=== PATIENT | female | born 1980 | race Caucasian/White ===

== ENCOUNTER → 2019-11-13 14:46 | Outpatient (BNVA) | payer MEDICAID, SELFPAY | PROVIDERS: Family Provider Family Medicine; Visit Provider Emergency Medicine | DX: M25.572 Pain in left ankle and joints of left foot (principal) | CPT/HCPCS: 73610 ==

== ENCOUNTER 2019-11-21 10:29 | Outpatient (CLI) | payer MEDICAID, SELFPAY ==
--- NOTE | 2019-11-21 10:40 | MR_ITS ---
WS: [id number] MRI LEFT ANKLE without CONTRAST. COMPARISON: LEFT ankle radiographs 11/13/2019 Multiplanar, multisequence imaging is performed without contrast. Significant abnormal findings in the medial subtalar joint. There is marrow edema in the inferior med ial talus and additional marrow edema in the medial calcaneus. There is marked narrowing and irregula rity along the subtalar joint. Osteochondral defects are noted along inferior talus. These osteochond ral lesions measure 4.6 and 4.9 mm. The intraosseous ligament is not identified as an intact structur e. Cervical ligament is probably intact. There is increased signal in the subtalar region. No edi architect ior subluxation of the talus. There is spurring and hypertrophic bone formation involving the far med ial talocalcaneal articulation with adjacent soft tissue thickening. There is mild thickening of the flexor digitorum longus tendon but it does appear to be intact as a cross is adjacent to the sustenta culum shaila. There is a small lobulated cystic mass measuring 10 mm just lateral to the flexor digitor um longus tendon along the anterior calcaneus. There is a small amount of fluid in the peroneal tendon sheath Achilles tendon is normal. MR/MR ankle LT wo con* [id number] IMPRESSION: 1. Findings suggest abnormal impingement involving the medial talocalcaneal ar ticulation and the subtalar joint. Marrow edema on both sides of the joint with osteochondral lesions along the inferior surface of the talus. 2. Intraosseous ligament is not identified as a discrete structure and could b e torn. 3. Mild thickening of the flexor digitorum longus tendon as it passes by the s ustentaculum shaila. No tear. 4. Mild peroneal tenosynovitis. 5. Possible ganglion associated with the flexor digitorum longus tendon along the anterior calcaneus.
== END 2019-11-21 10:30 | disposition home or self-care (01) ==
LOC: RADWPI 10:36
PROVIDERS: Visit Provider Emergency Medicine
DX: M25.572 Pain in left ankle and joints of left foot (principal); G89.29 Other chronic pain; M65.872 Other synovitis and tenosynovitis, left ankle and foot
CPT/HCPCS: 73721

== ENCOUNTER → 2020-01-19 16:00 | Outpatient (BNVA) | payer MEDICAID, SELFPAY | PROVIDERS: Visit Provider Nurse Practitioner Family | DX: Z11.59 Encounter for screening for other viral diseases (principal) | CPT/HCPCS: 87635 ==

== ENCOUNTER 2020-01-24 08:19 | Inpatient (IN) | payer MEDICAID, SELFPAY ==
[2020-01-24] VITALS (8 sets, daily range): BP systolic 126–143; BP diastolic 78–88; PULSE 63–95; RESP 18–28; TEMP 36.9–37.6; O2SAT 88–95; BMI 51.7
--- NOTE | 2020-01-24 08:42 | XRR_ITS ---
PROCEDURE INFORMATION: Exam: XR Chest, 1 View Exam date and time: 01/24/2020 8:59 AM Age: 39 years old Clinical indication: Shortness of breath; Additional info: Covid TECHNIQUE: Imaging protocol: XR of the chest Views: 1 view. COMPARISON: No relevant prior studies available. FINDINGS: Lungs: Interstitial and asymmetric airspace disease, in the setting of reported COVID pneumonitis. Pleural space: No significant pleural effusion. Heart/Mediastinum: No cardiomegaly. Bones/joints: Unremarkable. XR/XR chest 1V portable [id number] IMPRESSION: Interstitial and asymmetric airspace disease, in the setting of reported COVID pneumonitis.
--- NOTE | 2020-01-24 08:45 | ECG_ITS ---
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
--- NOTE | 2020-01-24 08:55 | W.ED.COVID ---
HPI - COVID General: Chief Complaint: Shortness of Breath/Dyspnea Stated Complaint: covid +. SOB Time Seen by Provider: 01/24/20 08:29 Triage information: Has fever, cough or shortness of breath. Exposure to COVID + person last 14 days History of Present Illness: HPI Narrative: This patient is a 39-year-old female who presents today with Covid symptoms and shortness of breath. She is on day 8 of symptoms. She had a positive Covid test done on Sunday and also at the same time had a negative flu test. She has been having fever, cough, shortness of breath, loose stools, poor appetite, body aches. Her temperatures been up to 102. She does not know when or how she was exposed. She does not have a history of diabetes, hypertension, asthma. She is morbidly obese with a BMI of 51. She came in today because last night she really fell like she could not get a good breath. Her room air sat during our conversation ranged between 89 and 92%. MD complaint: known COVID positive Prior covid testing: yes, results known Prior testing date: 01/19/20 COVID 19 common symptoms: positive fever(s), chills, cough, non-productive cough, dyspnea, fatigue, body aches, headache(s), loss of sense of smell and/or taste, nasal congestion, nausea and diarrhea COVID 19 other sytmptoms: negative chest pain Onset (ago): day(s) (8) Severity: moderate Pertinent comorbid conditions: obesity (BMI 51) COVID Results: SARS-CoV-2 RNA (RT-PCR) Detected (NOT DETECTED) A 01/19/20 16:00 01/19/20 Review of Systems General: Reports: 10 or more systems reviewed and unremarkable except in HPI and below Const: Reports: fever(s), chills, body aches and fatigue Eyes: Denies: change in vision ENMT: Reports: nasal congestion Card: Denies: chest pain or swelling of feet/ankles Resp: Reports: dyspnea and non-productive cough GI: Reports: nausea and diarrhea : Denies: flank pain or difficulty voiding Musc: Denies: neck pain or back pain Skin/Breast: Denies: rash Neuro: Reports: headache(s) Nitish/Lymph: Denies: easy bruising or easy bleeding PFSH ED PFSH: Medical History No pertinent past medical history Surgical History No pertinent past surgical history Social History Smoking and tobacco status: never smoked Alcohol intake: never Current occupational status: employed Current occupation: [employer] Physical Exam Const: COMMON NORMALS: no acute distress, patient oriented x3, no limitations and alert GENERAL APPEARANCE: cooperative NUTRITIONAL APPEARANCE: obese morbidly obese HENMT: HEAD & SCALP: normal to inspection FACE & SINUS: normal facial exam Eye: GENERAL EYE: appearance normal, both eyes and all related structures Neck/C-Spine: COMMON NORMALS: supple, no meningeal signs and no JVD Chest: COMMONS NORMALS: normal inspection of the chest Resp: EFFORT & INSPECTION: Yes tachypneic AUSCULTATION: diminished lung sounds Cardio: COMMON NORMALS: no JVD, regular rate, regular rhythm and No murmurs present (Cardio) RATE: regular rate RHYTHM: regular rhythm GI: COMMON NORMALS: Normal to inspection, nondistended, normoactive bowel sounds present, Soft to palpation and non-tender INSPECTION: Yes normal to inspection AUSCULTATION: Yes normoactive bowel sounds PALPATION: Yes Soft to palpation Back/Pelvis: COMMON NORMALS: thoracic and lumbar spine normal to inspection Extremity: COMMON NORMALS: normal to inspection Neuro: COMMON NORMALS: patient oriented x3, moves all extremities, no focal motor deficits and no sensory deficits noted SENSORIUM/ORIENTATION: Yes alert MENINGEAL SIGNS: Yes no meningeal signs Psych: COMMON NORMALS: mental status grossly normal, cooperative and normal affect Skin: COMMON NORMALS: no rashes or lesions noted and turgor normal GENERAL SKIN EXAM: no rashes or lesions noted and turgor normal Course ED course: This patient remained fairly stable while in the department. Her room air sats continued to be only in the high 80s. When she came back from CT she was not put back on her oxygen and her sats consistently stayed low. I put her back on oxygen she is now 93 or 94% on 2 L. Her chest x-ray shows some significant infiltrates as does the CT. There is no PE noted. Her labs were pretty good with only slight elevation in her inflammatory markers. Her D-dimer was quite elevated at 1.15. She will be admitted to the floor for oxygen, observation, treatment. Her obesity is her main risk factor and is a significant 1. Vital Signs: Vital signs: Vital Signs Temperature 98.9 F 01/24/20 08:32 Pulse Rate 95 01/24/20 08:32 Blood Pressure 138/88 01/24/20 08:32 Pulse Oximetry 91 01/24/20 08:32 MDM - COVID Lab Data Result diagrams: 01/24/20 08:55 01/24/20 08:55 Labs: Lab Results 01/24/20 01/24/20 01/24/20 Range/Units 08:55 08:55 08:55 WBC 4.2 (4.0-10.0) 10^3/uL RBC 4.65 (4.1-5.3) 10^6/uL Hgb 13.1 (11.5-15.3) g/dL Hct 41.3 (37.0-47.0) % MCV 88.8 (81-99) fL MCH 28.2 (28.0-34.0) pg MCHC 31.7 (30.0-36.0) g/dL RDW 13.9 (12.1-15.1) % Plt Count 185 (130-400) 10^3/cmm MPV 9.8 (7.4-10.4) fL Neut % (Auto) 75.2 % Lymph % (Auto) 18.7 % [place] % (Auto) 5.2 % Eos % (Auto) 0.2 % Baso % (Auto) 0.2 % Neut # (Auto) 3.17 (1.8-7.7) 10^3/uL Lymph # (Auto) 0.8 (0.8-4.8) 10^3/uL [place] # (Auto) 0.2 (0.2-0.9) 10^3/uL Eos # (Auto) 0.0 (0.0-0.8) 10^3/uL Baso # (Auto) 0.0 (0.0-0.1) 10^3/uL Nucleated RBC % (auto) 0 % Nucleated RBCs # 0.0 /100WBC PT 13.10 (12.1-14.9) SECONDS INR 0.97 (0.8-1.2) Fibrinogen 555 H (174-498) mg/dL D-Dimer 1.15 H (0-0.59) ug/mIFEU Sodium 135 L (136-145) mmol/L Potassium 4.0 (3.5-5.1) mmol/L Chloride 98 (98-107) mmol/L Carbon Dioxide 24 (22-29) mmol/L Anion Gap 17.0 (5-19) BUN 4 L (6-20) mg/dL Creatinine 0.7 (0.5-0.9) mg/dL GFR Calculation 92.7 (90-130) mL/min Glucose 119 H (65-115) mg/dL Calculated Osmolality 278 L (285-295) mOsm/kg Lactic Acid (0.5-2.2) mmol/L Calcium 8.3 L (8.5-10.5) mg/dL Ferritin 325 H (15-150) ng/mL Total Bilirubin 0.4 (0.15-1.2) mg/dL AST 29 (0-32) U/L ALT 25 (0-33) U/L Alkaline Phosphatase 102 (35-105) IU/L Troponin T Baseline (0-10) ng/L C-Reactive Protein 28.3 H (0.0-4.9) mg/L NT-Pro-B Natriuret Pep 68 (0-125) pg/mL Total Protein 6.8 (6.6-8.7) g/dL Albumin 4.3 (3.5-5.2) g/dL Globulin 2.5 (1.3-4.6) g/dL Procalcitonin 0.08 (0-0.5) ng/mL 01/24/20 01/24/20 Range/Units 08:55 08:55 WBC (4.0-10.0) 10^3/uL RBC (4.1-5.3) 10^6/uL Hgb (11.5-15.3) g/dL Hct (37.0-47.0) % MCV (81-99) fL MCH (28.0-34.0) pg MCHC (30.0-36.0) g/dL RDW (12.1-15.1) % Plt Count (130-400) 10^3/cmm MPV (7.4-10.4) fL Neut % (Auto) % Lymph % (Auto) % [place] % (Auto) % Eos % (Auto) % Baso % (Auto) % Neut # (Auto) (1.8-7.7) 10^3/uL Lymph # (Auto) (0.8-4.8) 10^3/uL [place] # (Auto) (0.2-0.9) 10^3/uL Eos # (Auto) (0.0-0.8) 10^3/uL Baso # (Auto) (0.0-0.1) 10^3/uL Nucleated RBC % (auto) % Nucleated RBCs # /100WBC PT (12.1-14.9) SECONDS INR (0.8-1.2) Fibrinogen (174-498) mg/dL D-Dimer (0-0.59) ug/mIFEU Sodium (136-145) mmol/L Potassium (3.5-5.1) mmol/L Chloride (98-107) mmol/L Carbon Dioxide (22-29) mmol/L Anion Gap (5-19) BUN (6-20) mg/dL Creatinine (0.5-0.9) mg/dL GFR Calculation (90-130) mL/min Glucose (65-115) mg/dL Calculated Osmolality (285-295) mOsm/kg Lactic Acid 1.1 (0.5-2.2) mmol/L Calcium (8.5-10.5) mg/dL Ferritin (15-150) ng/mL Total Bilirubin (0.15-1.2) mg/dL AST (0-32) U/L ALT (0-33) U/L Alkaline Phosphatase (35-105) IU/L Troponin T Baseline 6 (0-10) ng/L C-Reactive Protein (0.0-4.9) mg/L NT-Pro-B Natriuret Pep (0-125) pg/mL Total Protein (6.6-8.7) g/dL Albumin (3.5-5.2) g/dL Globulin (1.3-4.6) g/dL Procalcitonin (0-0.5) ng/mL COVID Results: SARS-CoV-2 RNA (RT-PCR) Detected (NOT DETECTED) A 01/19/20 16:00 01/19/20 Discharge Plan Discharge Patient Disposition: Admitted As Inpatient Clinical Impression: COVID-19, Hypoxia Condition: Stable Coding Level of Care Code ED Trimmer Meat for Johng Fwd Exam Comprehensive
[2020-01-24 09:10] LABS: Basophils % 0.2 %; Eosinophils % 0.2 %; Hematocrit 41.3 % (37.0-47.0); Hemoglobin 13.1 g/dL (11.5-15.3); Lymphocytes # 0.8 10^3/uL (0.8-4.8); Lymphocytes % 18.7 %; Mean Corpuscular HGB Conc 31.7 g/dL (30.0-36.0); Mean Corpuscular Hemoglobin 28.2 pg (28.0-34.0); Mean Corpuscular Volume 88.8 fL (81-99); Mean Platelet Volume 9.8 fL (7.4-10.4); Monocytes # 0.2 10^3/uL (0.2-0.9); Monocytes % 5.2 %; Neutrophils # 3.17 10^3/uL (1.8-7.7); Neutrophils % 75.2 %; Nucleated Red Blood Cells % 0 %; Platelet Count 185 10^3/cmm (130-400); Red Blood Count 4.65 10^6/uL (4.1-5.3); Red Cell Distribution Width 13.9 % (12.1-15.1); White Blood Count 4.2 10^3/uL (4.0-10.0)
[2020-01-24] MEDS: dexamethasone 4 mg/mL INJ 6 MG IVP ×2 (09:24→13:09)
[2020-01-24 09:25] LABS: INR 0.97 (0.8-1.2)
[2020-01-24 09:28] LABS: D Dimer 1.15 ug/mIFEU (0-0.59)
[2020-01-24 09:36] LABS: Lactic Sepsis W/Reflex 1.1 mmol/L (0.5-2.2)
[2020-01-24 09:38] LABS: Troponin(5th) Baseline 6 ng/L (0-10)
[2020-01-24 09:43] LABS: NT Pro B Type Natriuretic Pept 68 pg/mL (0-125); Procalcitonin 0.08 ng/mL (0-0.5)
[2020-01-24 09:54] LABS: Alanine Aminotransferase 25 U/L (0-33); Albumin Level 4.3 g/dL (3.5-5.2); Alkaline Phosphatase 102 IU/L (35-105); Aspartate Amino Transferase 29 U/L (0-32); Blood Urea Nitrogen 4 mg/dL (6-20); C Reactive Protein 28.3 mg/L (0.0-4.9); Calcium 8.3 mg/dL (8.5-10.5); Carbon Dioxide 24 mmol/L (22-29); Chloride 98 mmol/L (98-107); Ferritin 325 ng/mL (15-150); Globulin 2.5 g/dL (1.3-4.6); Glomerular Filtration Rate 92.7 mL/min (90-130); Glucose 119 mg/dL (65-115); Osmolality Calculated 278 mOsm/kg (285-295); Sodium 135 mmol/L (136-145); Total Bilirubin 0.4 mg/dL (0.15-1.2); Total Protein 6.8 g/dL (6.6-8.7)
[2020-01-24 09:56] LABS: Fibrinogen 555 mg/dL (174-498)
[2020-01-24] MEDS: sodium chloride 0.9% 1,000 ML 999 ML IV (10:10)
--- NOTE | 2020-01-24 10:49 | CTR_ITS ---
PROCEDURE INFORMATION: Exam: CT Angiography Chest With Contrast Exam date and time: 01/24/2020 10:49 AM Age: 39 years old Clinical indication: Dyspnea; Additional info: Covid, high d-dimer, hypoxia TECHNIQUE: Imaging protocol: Computed tomographic angiography of the chest with intravenous contrast. 3D rendering (Not supervised by radiologist): MIP and/or 3D reconstructed images were created by the technologist. Radiation optimization: All CT scans at this facility use at least one of these dose optimization techniques: automated exposure control; mA and/or kV adjustment per patient size (includes targeted exams where dose is matched to clinical indication); or iterative reconstruction. Contrast material: OMNIPAQUE 350; Contrast volume: 95 ml; Contrast route: INTRAVENOUS (IV); COMPARISON: CR (CHEST, ) 01/24/2020 8:56 AM RADIATION DOSE METRICS: Total DLP (mGy-cm): 546.64 FINDINGS: Pulmonary arteries: No pulmonary embolus in the central pulmonary arteries. Evaluation of the peripheral pulmonary arteries is somewhat limited by motion artifact. Aorta: Normal caliber of the thoracic aorta. Lungs: Multifocal bilateral airspace disease, in the setting of reported COVID-19 pneumonitis. Pleural space: No pleural effusion. Heart: No cardiomegaly. Lymph nodes: Calcified and noncalcified lymph nodes, including a 2.3 by 2.4 by 2.2 cm noncalcified right paratracheal lymph node. Upper abdomen: Fatty infiltration of the liver. Enlarged spleen measuring 16.2 cm in length. Colonic diverticula. Bones/joints: Marginal osteophytes . CT/CT angio chest PE protcl [id number] IMPRESSION: 1. No pulmonary embolus in the central pulmonary arteries. Evaluation of the peripheral pulmonary arteries is somewhat limited by motion artifact. 2. Multifocal bilateral airspace disease, in the setting of reported COVID-19 pneumonitis. 3. Additional findings as described above. Radiation Dose CTDIVOL = (mGy): DLP = 546.64 (mGy-cm)
[2020-01-24] MEDS: iohexol 350 mg/mL 100 mL Btl IV (11:20)
[2020-01-24] MEDS: enoxaparin 80 mg/0.8 mL Syringe 70 MG SUBCUT (12:27)
--- NOTE | 2020-01-24 13:42 | PM.HP ---
Providers/Chief Complaint Admitting Physician: Sarwat Branch MD Chief Complaint: covid +. SOB History of Present Illness Shoshana Pan is a 39 year old female with no significant past medical history who was tested positive for Covid around 8 days ago. She states for last 3 to 4 days she has been spiking fevers along with cough and difficulty in breathing which mostly started last night which made her to come to the ER today. She is complaining of mild headache, symptoms of sinus congestion, dry cough with occasional headaches and change of sense of smell for last couple of days. She states she is not really sure from there she contracted the infection and nobody else at home has any similar complaints. Her blood work in the ER showed a white count of 4.2, hemoglobin 13.1, platelet count of 185, INR of 0.9, fibrinogen of 555, D-dimer of 1.15, sodium 135, creatinine of 0.7, AST/ALT of 29/25, CRP of 28 CTA chest negative for pulmonary embolism. Review of Systems General: Reports: 10 or more systems reviewed and unremarkable except in HPI and below Const: Denies: fever(s), chills, body aches, change in appetite, change in weight, malaise, night sweats, diaphoresis, change in sleep pattern, daytime sleepiness or snoring Eyes: Denies: change in vision, blurry vision, photophobia, eye discomfort or eye discharge ENMT: Denies: throat pain, enlarged tonsils, hoarseness, mouth pain, oral sores, dry mouth, tinnitus, nasal congestion or post nasal drip Card: Denies: chest pain, palpitations, irregular heart rhythm, edema, swelling of feet/ankles, lightheadedness, syncope, pre-syncope, dyspnea on exertion, orthopnea, leg pain with exertion or acrocyanosis Resp: Denies: dyspnea, productive cough, non-productive cough, wheezing, stridor, pain on inspiration, change in phlegm color, hemoptysis or chest congestion GI: Denies: abdominal pain, nausea, vomiting, hematemesis, coffee ground emesis, dysphagia, heartburn, diarrhea, constipation, bloating, GI cramping, change in bowel habits, pain on defecation, hematochezia or melena : Denies: flank pain, dysuria, urinary frequency, urinary urgency, urinary hesitancy, nocturia or hematuria Musc: Denies: neck pain, back pain, extremity pain, joint pain, joint swelling, joint redness, joint stiffness or limited range of motion Neuro: Denies: headache(s), numbness in extremities, weakness in extremities, sensory changes, lack of coordination, difficulty walking, frequent falls, dizziness, vertigo, confusion, Slurred speech present, difficulty communicating thoughts or seizure-like activity Psych: Denies: anxiety, depression, mood swings, panic attacks, hopelessness or irritability Endo: Denies: polyuria, polydipsia, tired all the time, cold intolerance, excessive sweating, flushing or heat intolerance Nitish/Lymph: Denies: easy bruising or easy bleeding All/Imm: Denies: tongue swelling, facial swelling or acute wheezing Medications/Allergies Home Medications Medication Instructions Recorded Confirmed Last Taken Type [place] AFO #1 ea 12/12/19 01/24/20 Unknown Rx wuffqespaggbcrw-xqqelnsidvhyzni-WJ 7.5 ml PO Q6H PRN #160 ml 01/22/20 01/24/20 01/24/20 03:00 Rx 2 mg-30 mg-10 mg/5 mL oral syrup 7.5ml guaifenesin 600 mg tablet, 600 mg PO Q12H #20 tab 01/22/20 01/24/20 01/24/20 Rx extended release 12 hr ondansetron 4 mg disintegrating 4 mg PO Q6H PRN #12 tab 01/22/20 01/24/20 01/22/20 Rx tablet azithromycin 250 mg tablet See Rx Instructions PO .COMPLEX #6 01/23/20 01/24/20 01/23/20 Rx tab 2 tabs ibuprofen [Advil] 200 - 400 mg PO PRN 01/24/20 01/24/20 01/23/20 History tyigchka-hdb-gek C-herb no.124 See Rx Instructions .ROUTE .COMPLEX 01/24/20 01/24/20 01/23/20 History [Airborne Gummy] Allergies Allergy/AdvReac Type Severity Reaction Status Date / Time No Known Allergies Allergy Verified 01/24/20 09:51 PFSH Acute PFSH: Medical History No pertinent past medical history Surgical History No pertinent past surgical history Family History (Updated 01/24/20 @ 16:46 by Sarwat Branch MD) Denies family history of Clotting disorder Chronic kidney disease (CKD) Social History Smoking and tobacco status: never smoked Alcohol intake: never Current occupational status: employed Current occupation: [employer] Vitals/I&O/Wt Last Vital Signs Temp 98.9 F 01/24/20 08:32 Pulse 95 01/24/20 08:32 BP 138/88 01/24/20 08:32 Pulse Ox 91 01/24/20 08:32 Weight last 48 hrs Weight 149.685 kg Physical Exam Narrative: EXAM NARRATIVE: General: No acute distress, AO x3, morbidly obese HEENT: PERRLA, pupils bilaterally equal and reactive Chest: Normal vesicular breath sounds, occasional bilateral rhonchi, equal good air entry bilaterally CVS: S1-S2 regular, no murmurs, no tachycardia, no gallops, no rubs Abdomen: Soft, nontender, no organomegaly, bowel sounds present Neuro: No focal deficits, no facial deformity, AO x3, power 5/5 in all limbs Data : 01/24/20 08:55 01/24/20 08:55 A&P Assessment and plan (1) COVID-19: Status: Acute (2) Hypoxia: Status: Acute Additional A&P Information Hypoxia due to COVID-19: At least moderate COVID-19 as patient is requiring 2 to 3 L oxygen supplementation keeping saturation over 92%. Antiviral medication including Remedesevir to finish a 5-day course. Start patient on dexamethasone 6 mg IV daily. Start patient on vitamin C, zinc. Start patient on Advair, Spiriva. Tessalon Perles every 8 hour. Continue to monitor inflammatory markers including proBNP, LDH, fibrinogen, ferritin, CRP, CPK daily. D-dimer elevated. CTA negative for PE. Start patient on Eliquis 5 mg twice daily. Patient will most likely require it for 14 days post discharge to prevent from thromboembolism. Check proBNP, blood culture, urine culture, urine analysis urine Legionella, bacterial antigen, procalcitonin, flu swab, MRSA swab, sputum culture. Start patient on levofloxacin 500 mg every other day as per the renal functions. We will continue the treatment for at least 5 days. Chances of super added bacterial infection low. Will check sputum culture as well. Hypertension: Goal blood pressure less than 140/90 mmHg. Patient does not have any history of hypertension in the past. We will continue to monitor. Check TSH, iron panel, A1c, lipid panel. Full code. Famotidine for PUD prophylaxis Isaac will also help with DVT prophylaxis. Attestations Medical Necessity Statement*: Patient needs hospitalization for management of hypoxia due to COVID-19 pneumonia. Admission for most likely more than 2 midnights. 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
[2020-01-24] MEDS: zinc gluconate 50 mg Tablet PO (17:07)
[2020-01-24] MEDS: ascorbic acid 500 mg Tablet PO (17:07)
[2020-01-24] MEDS: famotidine 20 mg/2 mL INJ IVP (17:08)
[2020-01-24] MEDS: apixaban 5 mg Tablet PO (17:08)
[2020-01-24] MEDS: benzonatate 100 mg Capsule PO ×2 (17:08→21:23)
[2020-01-24 18:01] LABS: Add Urine Culture? No; Bacteria Urine TRACE /hpf; Bilirubin Urine Neg (Negative); Blood Urine 2+ (Negative); Glucose Urine UA Norm (Normal); Ketones Urine Negative (Negative); Leukocyte Esterase Urine Negative (Negative); Nitrate Urine Negative (Negative); Protein Urine Neg (Negative); RBC Urine 0-4 /hpf (0-2); Squamous Epithelial Cell Urine 0-4 /hpf (0-5); Urine Appearance Clear (CLEAR); Urine Color Yellow (Yellow); Urobilinogen Urine Norm (Negative); WBC Urine RARE /hpf (0-5); pH Urine 6.5 (5-7)
[2020-01-24 18:10] LABS: Influenza A by IFA Negative (Negative); Influenza B by IFA Negative (Negative)
[2020-01-24 18:20] LABS: Thyroid Stimulating Hormone 0.62 uIU/mL (0.27-4.20)
[2020-01-24 18:21] LABS: Iron 32 ug/dL (37-145); NT Pro B Type Natriuretic Pept 95 pg/mL (0-125); Percent Saturation 12.5 % (20-50); Total Iron Binding Capacity 255 mcg/dl; Unsaturated Iron Binding 223 ug/dL (112-347)
[2020-01-25] VITALS (8 sets, daily range): BP systolic 107–137; BP diastolic 69–77; PULSE 61–82; RESP 18–24; TEMP 36.6–37; O2SAT 93–97
[2020-01-25] MEDS: famotidine 20 mg/2 mL INJ IVP ×2 (04:03→15:26)
--- NOTE | 2020-01-25 06:00 | XRR_ITS ---
PROCEDURE INFORMATION: Exam: XR Chest, 1 View Exam date and time: 01/25/2020 5:20 AM Age: 39 years old Clinical indication: Shortness of breath; Additional info: Covid TECHNIQUE: Imaging protocol: XR of the chest Views: 1 view. COMPARISON: CR (CHEST, ) 01/24/2020 8:56 AM FINDINGS: Lungs: Diminutive lung volumes. Interstitial crowding with diminishing interstitial opacities at the lower lungs. Pleural space: No pleural effusion. Heart/Mediastinum: Heart size is similar. Bones/joints: Unremarkable. XR/XR chest 1V portable [id number] IMPRESSION: Mildly diminished interstitial opacities lower lungs with a rather diffuse suggestion of interstitial thickening or interstitial crowding remaining.
[2020-01-25] MEDS: levoFLOXacin 500 mg Tablet PO (06:06)
[2020-01-25 06:34] LABS: Hematocrit 37.7 % (37.0-47.0); Hemoglobin 11.9 g/dL (11.5-15.3); Lymphocytes # 0.7 10^3/uL (0.8-4.8); Lymphocytes % 22.3 %; Mean Corpuscular HGB Conc 31.6 g/dL (30.0-36.0); Mean Corpuscular Volume 88.7 fL (81-99); Mean Platelet Volume 10.9 fL (7.4-10.4); Monocytes # 0.2 10^3/uL (0.2-0.9); Monocytes % 6.3 %; Neutrophils # 2.35 10^3/uL (1.8-7.7); Neutrophils % 70.8 %; Nucleated Red Blood Cells % 0 %; Platelet Count 184 10^3/cmm (130-400); Red Blood Count 4.25 10^6/uL (4.1-5.3); Red Cell Distribution Width 13.7 % (12.1-15.1); White Blood Count 3.3 10^3/uL (4.0-10.0)
[2020-01-25 06:47] LABS: Fibrinogen 494 mg/dL (174-498)
[2020-01-25 06:56] LABS: Alanine Aminotransferase 22 U/L (0-33); Albumin Level 3.8 g/dL (3.5-5.2); Alkaline Phosphatase 87 IU/L (35-105); Chloride 103 mmol/L (98-107); Potassium 3.9 mmol/L (3.5-5.1); Sodium 140 mmol/L (136-145)
[2020-01-25 07:26] LABS: C Reactive Protein 20.5 mg/L (0.0-4.9); Chol HDL Ratio 3.11 mg/dL (0.0-4.40); Cholesterol 112 mg/dL (0-200); Creatine Phosphokinase 57 U/L (26-192); Ferritin 342 ng/mL (15-150); HDL Cholesterol 36 mg/dL (60-100); LDL Cholesterol Calculated 60 mg/dL (50-129); Lactate Dehydrogenase 477 U/L (135-214); Triglycerides 82 mg/dL (0-150); VLDL Cholestrol Calculation 16 mg/dL (0-30)
[2020-01-25 07:27] LABS: Anion Gap 17.9 (5-19); Aspartate Amino Transferase 22 U/L (0-32); Blood Urea Nitrogen 8 mg/dL (6-20); Calcium 8.1 mg/dL (8.5-10.5); Carbon Dioxide 23 mmol/L (22-29); Globulin 2.3 g/dL (1.3-4.6); Glomerular Filtration Rate 136.6 mL/min (90-130); Glucose 123 mg/dL (65-115); Osmolality Calculated 290 mOsm/kg (285-295); Total Bilirubin 0.3 mg/dL (0.15-1.2); Total Protein 6.1 g/dL (6.6-8.7)
[2020-01-25 07:38] LABS: D Dimer 0.72 ug/mIFEU (0-0.59)
[2020-01-25 07:58] LABS: INR 1.11 (0.8-1.2)
[2020-01-25 08:04] LABS: Estmated Average Glucose 120; Hemoglobin A1C 5.8 % (4.0-6.0)
[2020-01-25 08:13] LABS: Slide Review Slide Review Perform
[2020-01-25] MEDS: zinc gluconate 50 mg Tablet PO (08:48)
[2020-01-25] MEDS: ascorbic acid 500 mg Tablet PO (08:48)
[2020-01-25] MEDS: fluticasone nasal spray 16gm Btl 1 SPRAY NASAL (08:48)
[2020-01-25] MEDS: benzonatate 100 mg Capsule PO ×3 (08:48→21:05)
[2020-01-25] MEDS: dexamethasone 4 mg/mL INJ 6 MG IVP (08:48)
[2020-01-25] MEDS: apixaban 5 mg Tablet PO ×2 (08:48→17:16)
[2020-01-25] MEDS: guaiFENesin-dextromethorphan UDC 10 mL 5 ML PO (10:59)
--- NOTE | 2020-01-25 13:38 | P.PN_ITS ---
Subjective Subjective: Interval history: On examination patient lying in bed. Overnight patient required 4 L to maintain saturation 90%. She states she is feeling a little weak. Denies any nausea, vomiting, headache. Appetite is appropriate. Working well with incentive spirometry and flutter valve. Vitals/I&O/Wt Last Vital Signs Temp 98.4 F 01/25/20 12:00 Pulse 67 01/25/20 12:00 Resp 18 01/25/20 12:00 BP 107/69 01/25/20 12:00 Pulse Ox 93 01/25/20 12:00 01/24/20 01/25/20 01/25/20 23:59 06:59 14:59 Intake Total 900 / 900 Output Total Balance 900 / 900 Weight last 48 hrs Weight 143.879 kg Weight 149.685 kg Physical Exam Narrative: EXAM NARRATIVE: General: No acute distress, AO x3, morbidly obese HEENT: PERRLA, pupils bilaterally equal and reactive Chest: Normal vesicular breath sounds, occasional bilateral rhonchi, equal good air entry bilaterally CVS: S1-S2 regular, no murmurs, no tachycardia, no gallops, no rubs Abdomen: Soft, nontender, no organomegaly, bowel sounds present Neuro: No focal deficits, no facial deformity, AO x3, power 5/5 in all limbs Data : 01/25/20 04:50 01/25/20 04:50 Micro: Microbiology 01/24/20 17:38 Gram Stain - Final Sputum - Expectorated Sputum 01/24/20 17:38 Legionella Urinary Antigen - Final Urine,Voided Bacterial Antigens - Final 01/24/20 17:40 Blood Culture - Preliminary Blood SPECIMEN COLLECTED 01/24/20 08:55 Blood Culture - Preliminary Blood SPECIMEN COLLECTED A&P Assessment and plan (1) COVID-19: Status: Acute (2) Hypoxia: Status: Acute Additional A&P Information Hypoxia due to COVID-19: At least moderate COVID-19 as patient is requiring 2 to 3 L oxygen supplementation keeping saturation over 92%. Antiviral medication including Remedesevir to finish a 5-day course. Day 2/ today. Start patient on dexamethasone 6 mg IV daily. Start patient on vitamin C, zinc. Start patient on Advair, Spiriva. Tessalon Perles every 8 hour. Inflammatory markers mildly improved today with fibrinogen trending down, D- dimer trending down though ferritin mildly elevated. Continue to monitor inflammatory markers including proBNP, LDH, fibrinogen, ferritin, CRP, CPK daily. D-dimer elevated. CTA negative for PE. Start patient on Eliquis 5 mg twice daily. Patient will most likely require it for 14 days post discharge to prevent from thromboembolism. Start patient on levofloxacin 500 mg every other day as per the renal functions. We will continue the treatment for at least 5 days. Chances of super added bacterial infection low. Will check sputum culture as well. Hypertension: Goal blood pressure less than 140/90 mmHg. Patient does not have any history of hypertension in the past. We will continue to monitor. TSH, lipid panel within normal limits. Iron panel suggestive of iron deficiency anemia so will start on oral iron supplementation. Full code. Famotidine for PUD prophylaxis Eliquis will also help with DVT prophylaxis. Attestations Medical Necessity Statement*: Needs further hospitalization for management of hypoxia due to COVID-19 pneumonia. Time Spent in Patient Care: Greater than 35 minutes (>than 50% of time spent in counselling and/or direct pt care on unit) . 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
[2020-01-26] VITALS (9 sets, daily range): BP systolic 111–137; BP diastolic 63–82; PULSE 51–78; RESP 15–20; TEMP 36.4–37.3; O2SAT 93–96
[2020-01-26] MEDS: famotidine 20 mg/2 mL INJ IVP (03:49)
[2020-01-26 04:58] LABS: Basophils % 0.1 %; Hematocrit 37.1 % (37.0-47.0); Hemoglobin 11.7 g/dL (11.5-15.3); Lymphocytes # 0.9 10^3/uL (0.8-4.8); Lymphocytes % 13.6 %; Mean Corpuscular HGB Conc 31.5 g/dL (30.0-36.0); Mean Corpuscular Hemoglobin 28.1 pg (28.0-34.0); Mean Corpuscular Volume 89.2 fL (81-99); Mean Platelet Volume 10.6 fL (7.4-10.4); Monocytes # 0.4 10^3/uL (0.2-0.9); Monocytes % 6.1 %; Neutrophils # 5.31 10^3/uL (1.8-7.7); Neutrophils % 79.3 %; Nucleated Red Blood Cells % 0 %; Platelet Count 207 10^3/cmm (130-400); Red Blood Count 4.16 10^6/uL (4.1-5.3); Red Cell Distribution Width 13.9 % (12.1-15.1); White Blood Count 6.7 10^3/uL (4.0-10.0)
[2020-01-26] MEDS: levoFLOXacin 500 mg Tablet PO (05:11)
[2020-01-26 05:37] LABS: D Dimer 0.55 ug/mIFEU (0-0.59)
[2020-01-26 05:44] LABS: C Reactive Protein 8.2 mg/L (0.0-4.9); Creatine Phosphokinase 52 U/L (26-192); Ferritin 328 ng/mL (15-150); Lactate Dehydrogenase 359 U/L (135-214)
[2020-01-26 05:45] LABS: Alanine Aminotransferase 17 U/L (0-33); Albumin Level 3.7 g/dL (3.5-5.2); Alkaline Phosphatase 79 IU/L (35-105); Anion Gap 13.8 (5-19); Aspartate Amino Transferase 14 U/L (0-32); Blood Urea Nitrogen 13 mg/dL (6-20); Calcium 8.4 mg/dL (8.5-10.5); Carbon Dioxide 27 mmol/L (22-29); Chloride 101 mmol/L (98-107); Globulin 2.2 g/dL (1.3-4.6); Glomerular Filtration Rate 110.2 mL/min (90-130); Glucose 123 mg/dL (65-115); Osmolality Calculated 287 mOsm/kg (285-295); Potassium 3.8 mmol/L (3.5-5.1); Sodium 138 mmol/L (136-145); Total Bilirubin 0.2 mg/dL (0.15-1.2); Total Protein 5.9 g/dL (6.6-8.7)
[2020-01-26 07:56] LABS: Fibrinogen 405 mg/dL (174-498)
[2020-01-26] MEDS: ferrous gluconate 324 mg Tablet PO (08:54)
[2020-01-26] MEDS: ascorbic acid 500 mg Tablet PO (08:54)
[2020-01-26] MEDS: apixaban 5 mg Tablet PO ×2 (08:54→17:47)
[2020-01-26] MEDS: zinc gluconate 50 mg Tablet PO (08:54)
[2020-01-26] MEDS: benzonatate 100 mg Capsule PO ×3 (08:54→21:43)
[2020-01-26] MEDS: fluticasone nasal spray 16gm Btl 1 SPRAY NASAL (08:59)
[2020-01-26] MEDS: dexamethasone 4 mg/mL INJ 6 MG IVP (09:20)
--- NOTE | 2020-01-26 14:35 | P.PN_ITS ---
Subjective Subjective: Interval history: Decreasing oxygen requirement, down to 2 L nasal cannula, hemodynamically stable and afebrile. On day 3 of remdesivir. Noted down-trending inflammatory markers. Had 1100 mL urine output overnight. Overall feels better, has been able to ambulate to and from the bathroom on her own. Reports poor sleep partially due to frequency of nursing staff rounds and likely steroids as well. Has been able to be off oxygen for brief periods of time while at rest. Medications: Reviewed: Yes Medication Review Details: Active Medications Generic Name Dose Route Start Last Admin Trade Name Freq PRN Reason Stop Dose Admin Acetaminophen 650 mg 01/24/20 16:42 Tylenol PO Q6H PRN Mild/Mod Pain Or Temp >/= 101 Apixaban 5 mg 01/24/20 18:00 01/26/20 08:54 Eliquis PO 5 mg BID HILDA Administration Ascorbic Acid 500 mg 01/24/20 16:20 01/26/20 08:54 Vitamin C PO 500 mg DAILY HILDA Administration Benzonatate 100 mg 01/24/20 16:20 01/26/20 08:54 Tessalon Pearls PO 100 mg TID HILDA Administration Bisacodyl 10 mg 01/24/20 16:42 Dulcolax PO DAILY PRN CONSTIPATION Dexamethasone 6 mg 01/25/20 09:00 01/26/20 09:20 Decadron IVP 6 mg Q24H HILDA Administration Famotidine 20 mg 01/26/20 17:00 Pepcid Tab PO Q12H HILDA Ferrous Gluconate 324 mg 01/26/20 08:00 01/26/20 08:54 Ferrous Gluconat e PO 324 mg BREAKFAST HILDA Administration Fluticasone Propio sheng 1 spray 01/25/20 09:00 01/26/20 08:59 Flonase NASAL 1 spray DAILY HILDA Administration Guaifenesin/Dextro methorphan 5 ml 01/25/20 10:51 01/25/20 10:59 Robitussin Dm Or al Liq PO 5 ml Q4H PRN Administration COUGH remdesivir (EUA) 1 00 mg/ 100 mls @ 100 mls /hr 01/25/20 12:30 01/26/20 12:56 Sodium Chloride IV 01/28/20 13:29 100 mls/hr Q24H HILDA Administration Lactulose 10 gm 01/24/20 16:42 Constulose PO DAILY PRN CONSTIPA Levofloxacin 500 mg 01/25/20 06:00 01/26/20 05:11 Levaquin PO 500 mg DAILY@0600 HILDA Administration Protocol Ondansetron HCl 4 mg 01/24/20 16:42 Zofran IVP Q8H PRN vomiting, or N/V if npo Fluticasone/Salmet aimee 1 puff 01/24/20 20:00 01/26/20 08:45 Advair Diskus 25 0-50 INHALATION 1 puff BID.RESPIRATORY S CH Administration Tiotropium [place] 18 mcg 01/25/20 08:00 01/26/20 08:42 Spiriva INHALATION 1 puff DAILY.RESPIRATORY HILDA Administration Zinc Gluconate 50 mg 01/24/20 16:20 01/26/20 08:54 Zinc Gluconate PO 50 mg DAILY HILDA Administration No Known Allergies Allergy (Verified 01/24/20 09:51) Vitals/I&O/Wt Last Vital Signs Temp 97.8 F 01/26/20 12:00 Pulse 63 01/26/20 12:00 Resp 15 01/26/20 12:00 BP 134/80 01/26/20 12:00 Pulse Ox 95 01/26/20 12:00 01/25/20 01/26/20 01/26/20 22:59 06:59 14:59 Intake Total 1580 / 3060 480 / 3540 200 / 200 Output Total 1350 / 1950 500 / 2450 2150 / 2150 Balance 230 / 1110 -20 / 1090 -1950 / -1950 Weight last 48 hrs Weight 80.014 kg Weight 143.879 kg Physical Exam Const: COMMON NORMALS: no acute distress, patient oriented x3 and alert GENERAL APPEARANCE: cooperative and comfortable NUTRITIONAL APPEARANCE: obese morbidly obese ORIENTATION/CONSCIOUSNESS: Yes awake OTHER: -very pleasant HENMT: COMMON NORMALS: normocephalic, atraumatic, hearing grossly normal bilaterally and moist oral mucous membranes HEAD & SCALP: normocephalic and atraumatic Eye: COMMON NORMALS: Equal, round and reactive pupils present, EOMs intact bilaterally and conjunctivae normal CONJUNCTIVA: Yes conjunctivae normal PUPIL: Yes Equal, round and reactive pupils present Neck/C-Spine: COMMON NORMALS: full ROM GENERAL: Yes normal visual inspection and Yes trachea midline Resp: COMMON NORMALS: normal respiratory effort, No retractions and No use of accessory muscles EFFORT & INSPECTION: Yes able to speak in complete sentences, Yes symmetric chest movement and No tachypneic OTHER: -on 2 L NC -diminished though equal breath sounds bilaterally Cardio: COMMON NORMALS: regular rate, regular rhythm, S1 normal heart sound present, S2 normal heart sound present and No murmurs present (Cardio) RATE: regular rate and bradycardic (intermittent) RHYTHM: regular rhythm HEART SOUNDS: S1 normal heart sound present and S2 normal heart sound present GI: COMMON NORMALS: Normal to inspection, nondistended, normoactive bowel sounds present, Soft to palpation and non-tender INSPECTION: Yes central obesity PALPATION: Yes Soft to palpation Extremity: COMMON NORMALS: normal to inspection, full ROM and no clubbing, cyanosis or edema; negative for no pedal edema Neuro: COMMON NORMALS: patient oriented x3, moves all extremities, no focal motor deficits, no sensory deficits noted and gait normal SENSORIUM/ORIENTATI ON: Yes alert Psych: COMMON NORMALS: mental status grossly normal, Normal thought process present, cooperative, normal affect and speech normal SPEECH: Yes normal speech THOUGHT PROCESS: Normal thought process present Skin: COMMON NORMALS: no rashes or lesions noted, no jaundice, no petechiae and no mottling GENERAL SKIN EXAM: no rashes or lesions noted Data : 01/26/20 04:32 01/26/20 04:32 Micro: Microbiology 01/24/20 17:40 Blood Culture - Preliminary Blood NEGATIVE TO DATE 01/24/20 08:55 Blood Culture - Preliminary Blood NEGATIVE TO DATE 01/24/20 17:38 MRSA Culture - Final Nose A&P Assessment and plan (1) COVID-19: -Found to be COVID-19 positive, symptomatic, particularly with respect to respiratory symptoms -Decreasing oxygen requirement, wean as tolerated, not oxygen dependent at baseline, home oxygen evaluation prior to discharge if appropriate -Inflammatory markers are trending down, continue to monitor -Vital signs stable, continue to monitor -Continue to monitor respiratory status -Continue incentive spirometry, breathing treatments as needed, zinc, vitamin C, pulmonary toilet -Telemetry monitoring -Continue remdesivir (day 3), IV steroids, empiric antibiotics -Noted to have elevated D-dimer, CTA done which ruled out PE, on Eliquis -Influenza, bacterial antigens, Legionella, MRSA negative -blood cx: prelim negative -sputum cx pending; gram stain-GPC Status: Acute (2) Hypoxia: -secondary to COVID-19 infection as noted above Status: Acute Additional A&P Information -regular diet as tolerated -GI ppx with famotidine -DVT ppx not needed as on Eliquis -Dispo: home -Code status: FULL code Attestations Medical Necessity Statement*: Patient requires hospitalization for continued treatment of COVID-19 pneumonia, remains on antiviral and antibiotic therapy, continues to require supplemental oxygen and close monitoring of respiratory status. Time Spent in Patient Care: 16 - 35 minutes (>than 50% of time spent in counselling and/or direct pt care on unit) . 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
[2020-01-26] MEDS: famotidine 20 mg Tablet PO (17:47)
--- NOTE | 2020-01-26 19:00 | PC.NURSE ---
SHIFT SUMMARY PT DOWN TO 2 LNC AND UP AMBULATING WITHOUT DIFFICULTY. PT HAD NO COMPLAINTS OF DISCOMFORT OR PAIN AT THIS TIME.
[2020-01-27] VITALS (9 sets, daily range): BP systolic 109–132; BP diastolic 70–82; PULSE 48–66; RESP 18–20; TEMP 36.9–37.2; O2SAT 93–96
[2020-01-27] MEDS: levoFLOXacin 500 mg Tablet PO (05:01)
[2020-01-27] MEDS: famotidine 20 mg Tablet PO ×2 (05:01→17:00)
--- NOTE | 2020-01-27 05:25 | PC.NURSE ---
Patient stable, moved to room 257, no events overnight. Will continue to monitor.
[2020-01-27 08:16] LABS: C Reactive Protein 4.9 mg/L (0.0-4.9); Ferritin 287 ng/mL (15-150); Lactate Dehydrogenase 302 U/L (135-214)
[2020-01-27] MEDS: zinc gluconate 50 mg Tablet PO (08:30)
[2020-01-27] MEDS: ascorbic acid 500 mg Tablet PO (08:30)
[2020-01-27] MEDS: fluticasone nasal spray 16gm Btl 1 SPRAY NASAL (08:30)
[2020-01-27] MEDS: ferrous gluconate 324 mg Tablet PO (08:30)
[2020-01-27] MEDS: benzonatate 100 mg Capsule PO ×3 (08:30→23:04)
[2020-01-27] MEDS: apixaban 5 mg Tablet PO ×2 (08:30→17:01)
[2020-01-27] MEDS: dexamethasone 4 mg/mL INJ 6 MG IVP (09:14)
--- NOTE | 2020-01-27 11:23 | P.PN_ITS ---
Subjective Subjective: Interval history: On day 4 of remdesivir, weaned to room air at rest, hemodynamically stable though with some intermittent bradycardia, asymptomatic. Continued decrease in inflammatory markers though most have normalized. Is in good spirits, was able to sleep last night so feels more rested today. Has remained on RA at rest and has been ambulating in her room. Medications: Reviewed: Yes Medication Review Details: Active Medications Generic Name Dose Route Start Last Admin Trade Name Freq PRN Reason Stop Dose Admin Acetaminophen 650 mg 01/24/20 16:42 Tylenol PO Q6H PRN Mild/Mod Pain Or Temp >/= 101 Apixaban 5 mg 01/24/20 18:00 01/27/20 08:30 Eliquis PO 5 mg BID HILDA Administration Ascorbic Acid 500 mg 01/24/20 16:20 01/27/20 08:30 Vitamin C PO 500 mg DAILY HILDA Administration Benzonatate 100 mg 01/24/20 16:20 01/27/20 08:30 Tessalon Pearls PO 100 mg TID HILDA Administration Bisacodyl 10 mg 01/24/20 16:42 Dulcolax PO DAILY PRN CONSTIPATION Dexamethasone 6 mg 01/25/20 09:00 01/27/20 09:14 Decadron IVP 6 mg Q24H HILDA Administration Famotidine 20 mg 01/26/20 17:00 01/27/20 05:01 Pepcid Tab PO 20 mg Q12H HILDA Administration Ferrous Gluconate 324 mg 01/26/20 08:00 01/27/20 08:30 Ferrous Gluconat e PO 324 mg BREAKFAST HILDA Administration Fluticasone Propio sheng 1 spray 01/25/20 09:00 01/27/20 08:30 Flonase NASAL 1 spray DAILY HILDA Administration Guaifenesin/Dextro methorphan 5 ml 01/25/20 10:51 01/25/20 10:59 Robitussin Dm Or al Liq PO 5 ml Q4H PRN Administration COUGH remdesivir (EUA) 1 00 mg/ 100 mls @ 100 mls /hr 01/25/20 12:30 01/26/20 12:56 Sodium Chloride IV 01/28/20 13:29 100 mls/hr Q24H HILDA Administration Lactulose 10 gm 01/24/20 16:42 Constulose PO DAILY PRN CONSTIPA Levofloxacin 500 mg 01/25/20 06:00 01/27/20 05:01 Levaquin PO 500 mg DAILY@0600 HILDA Administration Protocol Ondansetron HCl 4 mg 01/24/20 16:42 Zofran IVP Q8H PRN vomiting, or N/V if npo Fluticasone/Salmet aimee 1 puff 01/24/20 20:00 01/27/20 09:04 Advair Diskus 25 0-50 INHALATION 1 puff BID.RESPIRATORY S CH Administration Tiotropium [place] 18 mcg 01/25/20 08:00 01/27/20 09:04 Spiriva INHALATION 1 puff DAILY.RESPIRATORY HILDA Administration Zinc Gluconate 50 mg 01/24/20 16:20 01/27/20 08:30 Zinc Gluconate PO 50 mg DAILY HILDA Administration No Known Allergies Allergy (Verified 01/24/20 09:51) Vitals/I&O/Wt Last Vital Signs Temp 98.7 F 01/27/20 08:00 Pulse 48 L 01/27/20 09:04 Resp 18 01/27/20 09:04 BP 130/79 01/27/20 08:00 Pulse Ox 94 01/27/20 09:04 01/26/20 01/27/20 01/27/20 22:59 06:59 14:59 Intake Total 600 / 800 Output Total 1750 / 3900 200 / 200 Balance -1150 / -3100 -200 / -200 Weight last 48 hrs Weight 145.694 kg Weight 80.014 kg Physical Exam Const: COMMON NORMALS: no acute distress, patient oriented x3 and alert GENERAL APPEARANCE: cooperative and comfortable NUTRITIONAL APPEARANCE: obese morbidly obese ORIENTATION/CONSCIOUSNESS: Yes awake OTHER: -very pleasant HENMT: COMMON NORMALS: normocephalic, atraumatic, hearing grossly normal bilaterally and moist oral mucous membranes HEAD & SCALP: normocephalic and atraumatic Eye: COMMON NORMALS: Equal, round and reactive pupils present, EOMs intact bilaterally and conjunctivae normal CONJUNCTIVA: Yes conjunctivae normal PUPIL: Yes Equal, round and reactive pupils present Neck/C-Spine: COMMON NORMALS: full ROM GENERAL: Yes normal visual inspection and Yes trachea midline Resp: COMMON NORMALS: normal respiratory effort, No retractions and No use of accessory muscles EFFORT & INSPECTION: Yes able to speak in complete sentences, Yes symmetric chest movement and No tachypneic OTHER: -on RA while at rest -diminished though equal breath sounds bilaterally Cardio: COMMON NORMALS: regular rate, regular rhythm, S1 normal heart sound present, S2 normal heart sound present and No murmurs present (Cardio) RATE: regular rate and bradycardic (intermittent) RHYTHM: regular rhythm HEART SOUNDS: S1 normal heart sound present and S2 normal heart sound present GI: COMMON NORMALS: Normal to inspection, nondistended, normoactive bowel sounds present, Soft to palpation and non-tender INSPECTION: Yes central obesity PALPATION: Yes Soft to palpation Extremity: COMMON NORMALS: normal to inspection, full ROM and no clubbing, c yanosis or edema; negative for no pedal edema Neuro: COMMON NORMALS: patient oriented x3, moves all extremities, no focal motor deficits, no sensory deficits noted and gait normal SENSORIUM/ORIENTATION: Yes alert Psych: COMMON NORMALS: mental status grossly normal, Normal thought process present, cooperative, normal affect and speech normal SPEECH: Yes normal spe ech THOUGHT PROCESS: Normal thought process present Skin: COMMON NORMALS: no rashes or lesions noted, no jaundice, no petechiae and no mottling GENERAL SKIN EXAM: no rashes or lesions noted Data : 01/26/20 04:32 01/26/20 04:32 Micro: Microbiology 01/24/20 17:38 Gram Stain - Final Sputum - Expectorated Sputum Sputum Culture - Final A&P Assessment and plan (1) COVID-19: -Found to be COVID-19 positive, symptomatic, particularly with respect to respiratory symptoms -Decreasing oxygen requirement, wean as tolerated, not oxygen dependent at baseline, home oxygen evaluation prior to discharge if appropriate -Inflammatory markers are trending down, continue to monitor -Vital signs stable, continue to monitor -Continue to monitor respiratory status -Continue incentive spirometry, breathing treatments as needed, zinc, vitamin C, pulmonary toilet -Telemetry monitoring -Continue remdesivir (day 4), IV steroids, empiric antibiotics -Noted to have elevated D-dimer, CTA done which ruled out PE, on Eliquis -Influenza, bacterial antigens, Legionella, MRSA negative -blood cx: prelim negative -sputum cx-normal ghanshyam; gram stain-GPC Status: Acute (2) Hypoxia: -secondary to COVID-19 infection as noted above Status: Acute Additional A&P Information -regular diet as tolerated -GI ppx with famotidine -DVT ppx not needed as on Eliquis -Dispo: home -Code status: FULL code Attestations Medical Necessity Statement*: Patient requires hospitalization for continued treatment of COVID-19 pneumonia, remains on antibiotic and antiviral treatment. Time Spent in Patient Care: 16 - 35 minutes (>than 50% of time spent in counselling and/or direct pt care on unit) . 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
--- NOTE | 2020-01-27 17:59 | PC.NURSE ---
SHIFT SUMMARY pt has been sitting and ambulating on room air off and on today, states no sob with ambulating or sitting. pt had no complaints of any pain or discomfort at this time. will continue to monitor.
[2020-01-28] VITALS (7 sets, daily range): BP systolic 108–135; BP diastolic 54–89; PULSE 53–67; RESP 17–20; TEMP 36.7–37.2; O2SAT 90–95
[2020-01-28] MEDS: famotidine 20 mg Tablet PO (05:44)
[2020-01-28] MEDS: levoFLOXacin 500 mg Tablet PO (05:44)
[2020-01-28] MEDS: zinc gluconate 50 mg Tablet PO (08:37)
[2020-01-28] MEDS: apixaban 5 mg Tablet PO (08:37)
[2020-01-28] MEDS: benzonatate 100 mg Capsule PO (08:37)
[2020-01-28] MEDS: ascorbic acid 500 mg Tablet PO (08:37)
[2020-01-28] MEDS: dexamethasone 4 mg/mL INJ 6 MG IVP (08:37)
[2020-01-28] MEDS: ferrous gluconate 324 mg Tablet PO (08:37)
[2020-01-28] MEDS: fluticasone nasal spray 16gm Btl 1 SPRAY NASAL (08:39)
--- NOTE | 2020-01-28 08:42 | PM.DCS ---
Discharge Providers Date of Admission: 01/24/20 12:19 Date of Discharge: January 28, 2020 Attending Provider at Admission: Sarwat Branch MD Attending Provider at Discharge: Milena Dye MD Consults: None Primary Care Provider: AGBINO Albarado Diagnoses at Discharge Discharge Diagnosis (1) COVID-19: Status: Acute Permanent problem details: -Found to be COVID-19 positive, symptomatic, particularly with respect to respiratory symptoms -weaned to RA, not oxygen dependent at baseline, home oxygen evaluation prior to discharge-does not qualify for oxygen -Inflammatory markers are trending down and some have normalized -Vital signs stable, continue to monitor -Continue to monitor respiratory status -Continue incentive spirometry, breathing treatments as needed, zinc, vitamin C, pulmonary toilet -Telemetry monitoring -on day 5 of remdesivir, IV steroids, empiric antibiotics -Noted to have elevated D-dimer, CTA done which ruled out PE, on Eliquis -Influenza, bacterial antigens, Legionella, MRSA negative -blood cx: prelim negative -sputum cx-normal ghanshyam; gram stain-GPC (2) Hypoxia: Status: Resolved Permanent problem details: -secondary to COVID-19 infection as noted above Other Information Additional DC diagnoses/information: -Morbid obesity: BMI-49 kg/m2 Reason for Visit Reason for Visit: covid +. SOB Hospital Course Hospital Course: Patient was admitted to the COVID unit on the medical surgical floor and started on antiviral treatment, empiric antibiotics and supportive care secondary to having been found to be positive for COVID-19 infection. Inflammatory markers were monitored daily and have trended down or normalized. Oxygen requirement has steadily decreased to the point where she has been weaned to room air. She has had overall symptomatic improvement with the aforementioned treatment. She has now completed a 5-day course of remdesivir and will be discharged on oral antibiotics and steroids to complete her treatment course. Oral intake has improved steadily, she has been hemodynamically stable and afebrile consistently throughout her hospital stay with some intermittent bradycardia potentially due to remdesivir. Blood cultures have been negative, influenza, bacterial antigens, Legionella and MRSA are also negative. Sputum cultures have grown normal ghanshyam. She is comfortable going home today and is encouraged to continue to monitor her symptoms at home including her oxygen levels and temperature. She is advised to seek medical attention immediately should her symptoms worsen, or if she experiences fever, persistently low oxygen levels. She will require appropriate follow-up with her primary care provider. Discharge Summary: -Patient to follow-up with her primary care provider within 1 week Physical Exam Const: COMMON NORMALS: no acute distress, patient oriented x3 and alert GENERAL APPEARANCE: cooperative and comfortable NUTRITIONAL APPEARANCE: obese morbidly obese ORIENTATION/CONSCIOUSNESS: Yes awake OTHER: -very pleasant HENMT: COMMON NORMALS: normocephalic, atraumatic, hearing grossly normal bilaterally and moist oral mucous membranes HEAD & SCALP: normocephalic and atraumatic Eye: COMMON NORMALS: Equal, round and reactive pupils present, EOMs intact bilaterally and conjunctivae normal CONJUNCTIVA: Yes conjunctivae normal PUPIL: Yes Equal, round and reactive pupils present Neck/C-Spine: COMMON NORMALS: full ROM GENERAL: Yes normal visual inspection and Yes trachea midline Resp: COMMON NORMALS: normal respiratory effort, No retractions and No use of accessory muscles EFFORT & INSPECTION: Yes able to speak in complete sentences, Yes symmetric chest movement and No tachypneic OTHER: -on RA -diminished though equal breath sounds bilaterally; air entry has consistently improved Cardio: COMMON NORMALS: regular rate, regular rhythm, S1 normal heart sound present, S2 normal heart sound present and No murmurs present (Cardio) RATE: regular rate and bradycardic (intermittent) RHYTHM: regular rhythm HEART SOUNDS: S1 normal heart sound present and S2 normal heart sound present GI: COMMON NORMALS: Normal to inspection, nondistended, normoactive bowel sounds present, Soft to palpation and non-tender INSPECTION: Yes central obesity PALPATION: Yes Soft to palpation Extremity: COMMON NORMALS: normal to inspection, full ROM and no clubbing, cyanosis or edema; negative for no pedal edema Neuro: COMMON NORMALS: patient oriented x3, moves all extremities, no focal motor deficits, no sensory deficits noted and gait normal SENSORIUM/ORIENTATION: Yes alert Psych: COMMON NORMALS: mental status grossly normal, Normal thought process present, cooperative, normal affect and speech normal SPEECH: Yes normal speech THOUGHT PROCESS: Normal thought process present Skin: COMMON NORMALS: no rashes or lesions noted, no jaundice, no petechiae and no mottling GENERAL SKIN EXAM: no rashes or lesions noted Discharge Data Data Completed and Pending: Completed Studies During Hospitalization Category Date Time Status CT angio chest PE protcl 46546 Urge nt Cat Scan 01/24/20 10:49 Completed XR chest 1V cristobal ble 36846 Q48H Exams 01/25/20 06:00 Completed XR chest 1V cristobal ble [id number] Stat Exams 01/24/20 08:42 Completed Pending at discharge Category Date Time Status Blood Culture Sta t Lab 01/24/20 17:40 Results Vitals: Last Vital Signs Temp 98.4 F 01/28/20 04:00 Pulse 60 01/28/20 08:39 Resp 18 01/28/20 08:39 BP 133/89 01/28/20 04:00 Pulse Ox 90 01/28/20 08:39 Discharge Plan Discharge Patient Disposition: Home Condition: Stable Prescriptions: New Advair Diskus 250-50 mcg/dose Blister With Device 1 puff inhalation BID.RESPIRATORY Qty: 60 RF: 0 famotidine 20 mg Tablet 20 mg PO Q12H Qty: 60 RF: 0 Vitamin C 500 mg Tablet 500 mg PO DAILY Qty: 30 RF: 0 zinc gluconate 50 mg Tablet 50 mg PO DAILY Qty: 30 RF: 0 levofloxacin 500 mg Tablet 500 mg PO DAILY Qty: 3 RF: 0 ferrous gluconate 324 mg (37.5 mg iron) Tablet 324 mg PO BREAKFAST Qty: 30 RF: 0 dexamethasone 6 mg tablet 6 mg PO DAILY Qty: 7 RF: 0 Continued (DME) [facility] See Rx Instructions .Route .MEDSUPPLY Qty: 1 RF: 0 [id number]-arkogchpm-QI [Bromfed DM] 2-30-10 mg/5 mL syrup 7.5 ml PO Q6H PRN (Reason: cold symptoms) Qty: 160 RF: 0 guaifenesin 600 mg tablet extended release 12hr 600 mg PO Q12H Qty: 20 RF: 0 ondansetron 4 mg tablet,disintegrating 4 mg PO Q6H PRN (Reason: nausea and vomiting) Qty: 12 RF: 0 Advil 200 mg Tablet 200 - 400 mg PO PRN RF: 0 Airborne Gummy 250-11.66 mg Tablet,Chewable See Rx Instructions .ROUTE .COMPLEX RF: 0 Discontinued azithromycin 250 mg tablet See Rx Instructions PO .COMPLEX Qty: 6 RF: 0 Discharge Orders: Discharge Order (Routine); Ordered 01/28/20 Ordered By: Milena Dye Referrals: Lee Fairbanks FNP [Nurse Practitioner] - 4-7 days (Post hospital discharge follow up. Treated for COVID-19 pneumonia) Discharge Diet: Regular Discharge Activity: Increase activity as tolerated Activity Restrictions/Additional Instructions: -Please continue to monitor your symptoms as home; if noted worsening, persistently low oxygen levels, fever; please seek medical attention immediately -Your discharge packet will include some information on donation of convalescent plasma as your body has now formed antibodies to the coronavirus. Please read through the information and consider donation -Please continue to practice social distancing, frequent and proper hand hygiene and mask wearing Discharge Attestations Time Spent in Discharge Care*: greater than 30 min Specific Discharge Activities: Specific discharge activities: educating patient, discussing with immigration case manager/social workers/dc planners, documenting/other paperwork and evaluating patient/reviewing data Status at Discharge: Cognitive status at discharge: cognitively intact, Behavioral status at discharge: cooperative and independent in ADL's, Functional status at discharge: independent ambulation Overall status at discharge: patient is progressing back to baseline Quality Metrics Clinical Quality Measures During this hospital stay, did patient experience: None Coding Level of Care Code 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
--- NOTE | 2020-01-29 14:19 | PC.SOCIAL ---
Spoke with the patient on the phone about the discharge information. She had a question about a medication. I spoke with [facility], they stated that they had plenty of this medication over the counter ($4 a bottle) and prescription. Her pharmacy [facility] in [place], [place] did not have this medication. We briefly spoke about signs and symptoms to watch for such as; blue lips or face, fever of 104 or higher, trouble breathing or catching breath, chest pain lasting longer than 5 minute, confusion or trouble waking up. We also spoke about ways to improve the immune system, these included; eating and drinking well, eating fruits and vegetables, lean meat, low fat dairy products, keeping up with immunizations such as flu/pneumonia/shingles shots, going to all appointments and follow ups, lessening and stress. We also spoke about ways to stop or prevent the spread of the COVID 19. These included; social distancing at all times, washing hands longer than 20 seconds with a good lather, sanitizing surfaces in home and in vehicle, masking up when possible and washing any cloth masks after use and allow them to dry completely before next use, sneezing or coughing into arm, restricting company or going out in public. We spoke about the benefits of plasma donation and she is interested. i will mail her the information.
== END 2020-01-28 13:55 | disposition home or self-care (01) | DRG 177 ==
LOC: ER 12:40 → MEDSURG 14:25
PROVIDERS: Emergency Medicine; Admitting Provider Student in an Organized Health Care Education/Training Program; Visit Provider Family Medicine
DX: U07.1 COVID-19 (principal); J12.89 Other viral pneumonia; R09.02 Hypoxemia; I10 Essential (primary) hypertension
CPT/HCPCS: 12345; 36415; 71045; 71275; 80053; 80061; 81001; 82550; 82728; 83036; 83540; 83550; 83605; 83615; 83880; 84145; 84443; 84484; 85025; 85378; 85384; 85610; 86140; 86403; 87040; 87070; 87205; 87449; 87641; 87804; 93005; 94640; 94664; 96375; 99282; J1100; J1650; J3490; J7030; Q9967

== ENCOUNTER → 2020-03-08 13:03 | Outpatient (BNVA) | payer MEDICAID, SELFPAY | PROVIDERS: Visit Provider Podiatrist Foot & Ankle Surgery | DX: M95.8 Other specified acquired deformities of musculoskeletal system | CPT/HCPCS: 73610 ==

== ENCOUNTER → 2020-05-24 11:28 | Outpatient (BNVA) | payer MEDICAID, SELFPAY | PROVIDERS: Visit Provider Family Medicine | DX: R53.83 Other fatigue (principal); L65.9 Nonscarring hair loss, unspecified; I10 Essential (primary) hypertension; E66.9 Obesity, unspecified; Z68.43 Body mass index [BMI] 50.0-59.9, adult; F43.9 Reaction to severe stress, unspecified; R53.82 Chronic fatigue, unspecified; Z13.220 Encounter for screening for lipoid disorders; Z13.6 Encounter for screening for cardiovascular disorders; Z13.1 Encounter for screening for diabetes mellitus; Z83.3 Family history of diabetes mellitus | CPT/HCPCS: 80053; 80061; 82607; 82652; 83036; 84443; 85025 ==

== ENCOUNTER → 2021-08-29 13:30 | Outpatient (BNVA) | payer MEDICAID, SELFPAY | PROVIDERS: Visit Provider Podiatrist Foot & Ankle Surgery | DX: G57.60 Lesion of plantar nerve, unspecified lower limb (principal); M79.671 Pain in right foot | CPT/HCPCS: 64455; 73630; J1100; J3301; J3490 ==

== ENCOUNTER → 2021-10-10 12:57 | Outpatient (BNVA) | payer MEDICAID, SELFPAY | PROVIDERS: Visit Provider Podiatrist Foot & Ankle Surgery | DX: M79.671 Pain in right foot (principal); G57.61 Lesion of plantar nerve, right lower limb | CPT/HCPCS: 64455 ==

== ENCOUNTER → 2022-01-09 10:32 | Outpatient (BNVA) | payer OTHER, MEDICAID, SELFPAY | PROVIDERS: Visit Provider Nurse Practitioner Family | DX: R68.89 Other general symptoms and signs (principal); J02.9 Acute pharyngitis, unspecified | CPT/HCPCS: 87071; 87400; 87880 ==